=== PATIENT | male | born 1975 | race Caucasian/White ===

== ENCOUNTER 2016-11-18 11:02 | Emergency (ER) | payer OTHER ==
[~2016-11-18] VITALS: Ht 185.4 cm; Wt 72.6 kg
[~2016-11-18 11:02] MED LIST: KEFLEX 500MG.500 MG PO; NOMEDS *; SEPTRA DS 800 M1 TAB PO; VICODIN 5/500 T1 TAB PO
--- OUTSIDE RECORDS SUMMARY | 2016-11-18 11:08 | External Medical Summary Rpt ---
Demographics Preferred Language Setswana Marital Status Unknown [employer] Affiliation Unknown Race Unknown Ethnic Group Unknown Author Author , BUD FARRELL Address Unknown Phone Immunization Unable to retrieve immunization data due to connection failure with Immunization Registry. Please try again later.
--- OUTSIDE RECORDS SUMMARY | 2016-11-18 11:08 | External Medical Summary Rpt ---
Author Author [facility] Address Unknown Phone [email or web address] Purpose Continuity of Care Document - through 2016
--- OUTSIDE RECORDS SUMMARY | 2016-11-18 11:08 | External Medical Summary Rpt ---
Author Author [facility]UD Tripathi, [employer] Organization [employer] Address Unknown Phone Unavailable
--- OUTSIDE RECORDS SUMMARY | 2016-11-18 11:08 | External Medical Summary Rpt ---
Demographics Preferred Language Amharic Marital Status Unknown Congregation Affiliation Unknown Race Unknown Ethnic Group Unknown Author Author , BUD FARRELL Address Unknown Phone Immunization Unable to retrieve immunization data due to connection failure with Immunization Registry. Please try again later.
--- OUTSIDE RECORDS SUMMARY | 2016-11-18 11:08 | External Medical Summary Rpt ---
Author Author [employer] Organization [employer] Address Unknown Phone Unavailable Purpose Continuity of Care Document - through 2016
--- OUTSIDE RECORDS SUMMARY | 2016-11-18 11:08 | External Medical Summary Rpt ---
Author Author BUD Address Unknown Phone [email or web address] Purpose Continuity of Care Document - through 2016
--- NOTE | 2016-11-18 11:22 | Urgent Treatment Center Report ---
History of Present Issue Date/Time Seen by Provider 11/18/16 1112 Visit Reason Pt arrived:Walked Presenting Problem:PT STATES AREA TO R RESTORATION FROM BUG BITE Location if Accident: Onset of symptoms date/time:/ or onset unknown for:MEDICAL HX UNKNOWN Have you (or family members/close friends) recently traveled outside the [place]? N If Yes, where/when: Have you had exposure to infectious disease within the past month? TB? Other? Specify: c/o finding a bed bug on his right temporal. Hx of chronic skin lesion/sore x one year to right temporal. "I know I need to see a strategic sourcing consultant for it because it is concerning for skin cancer but I just keep putting it off". However currently dealing w/ bedbugs after he believes his children brought them home from their mothers. Found crawling all over curtains, near mattress and around leon edges. Last night, noticed a scab on the chronic skin lesion. "I thought it was odd because I hadn't picked at it or hit it on anything". Pulled off what he thought was a scab and it was a bed bug. Now he is worried. Wound is unchanged. No new symptoms. Source patient Exam Limitations no limitations ALLERGIES Coded Allergies: No Known Allergies (11/18/16) Home Medications Reported Medications No Known Home Medications History Medical History General CAD? No Angina: No [place]: No Hypertension? No Hyperlipidemia? No CHF? No DVT? No PE? No COPD? No Asthma? No Anemia? No GERD? No Gastric ulcers? No GI Bleed? No Hernia? No Thyroid Problems? No Hypothyroidism? No CVA? No Seizures? No Diabetes? No Renal Insuffiency? No UTI? No Stones? No GB Disease: No Nephritic Syndrome? No Asplenia? No Hepatitis? No Sickle Cell Disease? No Arthritis? No Migraines? No Cataracts? No Glaucoma? No MRSA? No HIV? No TB? No Anxiety? No Depression? No Cancer? No Immunization HX DT/Tetanus 1-4 YRS Surgical Hx Previous Surgery?Y TEETH EXTRACTED Social History Smoking Hx Smoker: Current Every Day Smoker Tobacco: Yes Type Cigarettes Packs/day < 1 Pack Alcohol Alcohol: No Review of Systems All Other Systems Reviewed and Negative Constitutional denies fever, denies malaise Skin see HPI, denies change in color Psychiatric/Neurological denies numbness, denies tingling Physical Exam Vital Signs Vital Signs Date Time Temp Pulse Resp B/P Pulse O2 O2 Flow FiO2 Ox Delivery Rate 11/18 1129 98.5 82 20 133/85 98 11/18 1112 98.5 82 20 133/85 98 General Appearance normal appearance, no apparent distress Respiratory Status No: respiratory distress. Cardiovascular no peripheral edema Neurologic alert Skin approx 0.5cm round skin lesion right temporal, approx 0.25cm deep. Wound pink healthy pink. No sign of infection, drainage, retained insect. Cleaned well w/ chlorhexadine/alcohol swab Lymphatic no adenopathy Medical Decision Making LABS/Meds/Orders Pt receiving controlled substance in ED? No Departure Departure Time of Disposition 1117 Disposition DC Home or Self Care(routine) Clinical Impression Primary Impression: Skin lesion of face Secondary Impressions: Infestation by bed bug Condition STABLE Referrals [facility] Call office and schedule FU appt for concerning skin lesion Patient Instructions DI for Bed Bug Bites, DI for Wound Infection, How to Get Rid of Bed Bugs, Skin Cancer -- Overview Additional Instructions No wound infection currently. Read attached instructions to help with monitoring. Monitor closely. Seek treatment immediately for new or worsening symptoms. Schedule follow up with Dermatology [facility]. a skin lesion x 1 year this deep and this location is VERY concerning. Continue to treat your home and yourself for bed bugs. VERY costly and time consuming. Read attached education for tips. Discharge Counseling Counseled pt/family regarding diagnosis, medications/RX, home care, follow up needs Prescriptions Current Visit Scripts No Known Home Medications at 1210
[2016-11-18 11:29] VITALS: BP 133/85
== END 2016-11-18 11:30 | disposition home or self-care (01) ==
LOC: UTC 11:02
DX: B88.8 Other specified infestations (principal); L98.8 Other specified disorders of the skin and subcutaneous tissue